=== PATIENT | male | born 1980 | race Caucasian/White ===

== ENCOUNTER 2019-09-15 22:59 | Emergency (ER) | payer OTHER ==
[~2019-09-15] VITALS: Ht 175.3 cm; Wt 77.1 kg
[2019-09-15] MEDS ORDERED: TETRACAINE 0.5% OPHTH SOLN 4ML OU ONE (23:15)
[2019-09-15] MEDS ORDERED: FLUORESCEIN OPHTH 1 MG STRIP OU ONE (23:15)
[2019-09-16] MEDS ORDERED: TOBRAMYCIN 0.3% OPHTH SOLN 5 ML OS ONE
[2019-09-16] MEDS ORDERED: valACYclovir HCL 500 MG TAB PO ONE
[2019-09-16] MEDS ORDERED: diphenhydrAMINE 50 MG CAP PO ONE
[2019-09-16] MEDS ORDERED: VALA1TAB64 PO (00:10)
[2019-09-16] MEDS ORDERED: TOBR0.3S37 OS (00:10)
[2019-09-16 00:20] VITALS: BP 158/86
== END 2019-09-16 00:22 | disposition home or self-care (01) ==
LOC: M ED 22:59
DX: H16.002 Unspecified corneal ulcer, left eye (principal); Z79.01 Long term (current) use of anticoagulants